=== PATIENT | female | born 1995 | race Caucasian/White ===

== ENCOUNTER 2018-04-19 05:14 | Day surgery (SDC) | payer BC ==
[~2018-04-19] VITALS: Ht 170.2 cm; Wt 59.9 kg
[2018-04-19] MEDS ORDERED: MORPHINE SULFATE 4 MG/ML, 1ML IVPush PRN ×2 (06:00→11:30)
[2018-04-19] MEDS ORDERED: SODIUM CHLORIDE FLUSH 10ML SYR IVF ONE (06:00)
[2018-04-19] MEDS ORDERED: ONDANSETRON 2MG/ML, 2ML IVPush ONE (06:00)
[2018-04-19] MEDS ORDERED: ONDANSETRON 2MG/ML, 2ML ONE ×2 (06:06→10:46)
[2018-04-19] MEDS ORDERED: MORPHINE SULFATE 4 MG/ML, 1ML ONE (06:06)
[2018-04-19 06:19] LABS: BASOPHILS # (AUTO) 0.03 x10^3/uL (0-0.1); BASOPHILS % (AUTO) 0 % (0-1); EOSINOPHILS # (AUTO) 0.07 x10^3/uL (0-0.4); EOSINOPHILS % (AUTO) 1 % (1-7); LYMPHOCYTES # (AUTO) 1.88 x10^3/uL (1-3.4); LYMPHOCYTES % (AUTO) 25 % (22-44); MD NO; MEAN CORPUSCULAR HEMOGLOBIN 31.8 pg (27.0-34.8); MEAN CORPUSCULAR HGB CONC 34.1 g/dL (32.4-35.8); MEAN CORPUSCULAR VOLUME 93.1 fL (80-100); MONOCYTES # (AUTO) 0.47 x10^3/uL (0.2-0.8); MONOCYTES % (AUTO) 6 % (2-9); NEUTROPHILS # (AUTO) 5.12 x10^3/uL (1.8-6.8); NEUTROPHILS % (AUTO) 68 % (42-75); PLATELET COUNT 167 x10^3/uL (130-400); RED BLOOD COUNT 4.18 x10^6/uL (3.82-5.3)
[2018-04-19 06:27] LABS: ALANINE AMINOTRANSFERASE 15 U/L (12-78); ALBUMIN 3.4 g/dL (3.4-5.0); ANION GAP 7 mmol/L (5-15); CALCIUM 8.3 mg/dL (8.5-10.1); CHLORIDE 110 mmol/L (98-107); CREATININE 0.79 mg/dL (0.55-1.02)
[2018-04-19 06:31] LABS: MICROSCOPIC INDICATED
[2018-04-19 06:40] LABS: CULTURE INDICATED? NO
[2018-04-19 06:45] LABS: ALKALINE PHOSPHATASE 67 U/L (45-117); BILIRUBIN,TOTAL 0.3 mg/dL (0.2-1.0); TOTAL PROTEIN 6.6 g/dL (6.4-8.2)
[2018-04-19 08:17] VITALS: BP 121/67
[2018-04-19] MEDS ORDERED: MISOPROSTOL 200 MCG TABLET ONE (09:44)
[2018-04-19] MEDS ORDERED: OXYTOCIN 10 UNITS/ML, 1ML ONE (09:44)
[2018-04-19] MEDS ORDERED: BUPIVACAINE/PF-EPI 0.25% 1:200K ONE (09:44)
[2018-04-19] MEDS ORDERED: SILVER NITRATE STICK TP ONE (09:56)
[2018-04-19] MEDS ORDERED: METHYLERGONOVINE 0.2 MG/ML IM ONE (09:57)
[2018-04-19] MEDS ORDERED: MIDAZOLAM 1 MG/ML, 2ML ONE (10:42)
[2018-04-19] MEDS ORDERED: FENTANYL PF 250 MCG/5ML ONE (10:42)
[2018-04-19] MEDS ORDERED: PROPOFOL 10 MG/ML, 20ML ONE (10:46)
[2018-04-19] MEDS ORDERED: CEFAZOLIN 1,000 MG ONE (10:46)
[2018-04-19] MEDS ORDERED: LIDOCAINE 4%, 4 ML SYR/CANN TP ONE (10:46)
[2018-04-19] MEDS ORDERED: ROCURONIUM 10 MG/ML,10ML ONE (10:46)
[2018-04-19] MEDS ORDERED: DEXAMETHASONE 4 MG/ML, 5ML ONE (10:46)
[2018-04-19] MEDS ORDERED: SUCCINYLCHOLINE 20 MG/ML, 10ML ONE (10:46)
[2018-04-19] MEDS ORDERED: ONDANSETRON 2MG/ML, 2ML IV PRN (11:30)
[2018-04-19] MEDS ORDERED: MEPERIDINE/PF 25MG/0.5ML IVPush PRN (11:30)
[2018-04-19] MEDS ORDERED: ONDANSETRON ODT 8 MG PO PRN (11:30)
[2018-04-19] MEDS ORDERED: PROMETHAZINE 25 MG/ML, 1ML IV PRN (11:30)
[2018-04-19] MEDS ORDERED: FENTANYL PF 100 MCG/2ML IV PRN (11:30)
[2018-04-19] MEDS ORDERED: OXYcodone 5 MG/5 ML ORAL.SOL UDC PO PRN (11:30)
[2018-04-19] MEDS ORDERED: ACETAMINOPHEN 325 MG TABLET PO PRN ×2 (11:30→13:00)
[2018-04-19] MEDS ORDERED: LORazepam 2 MG/ML, 1ML IVPush PRN (11:30)
[2018-04-19] MEDS ORDERED: FENTANYL PF 100 MCG/2ML ONE (11:59)
[2018-04-19] MEDS ORDERED: BUPIVACAINE/PF-EPI 0.25% 1:200K INFIL ONE (12:28)
[2018-04-19] MEDS ORDERED: D5%-LACTATED RINGERS 1,000 ML IV SCH (12:34)
[2018-04-19] MEDS ORDERED: MEPERIDINE/PF 50 MG/ML ONE (12:34)
[2018-04-19] MEDS ORDERED: OXYcodone/APAP 5/325MG TABLET PO PRN (13:00)
[2018-04-19] MEDS ORDERED: ONDANSETRON 2MG/ML, 2ML IVPush PRN (13:00)
[2018-04-19] MEDS ORDERED: ACETAMINOPHEN 650 MG/20.3 ML UDC ONE (13:00)
[2018-04-19] MEDS ORDERED: OXYcodone 5 MG/5 ML ORAL.SOL UDC ONE (13:00)
[2018-04-19 13:12] LABS: ANION GAP 7 mmol/L (5-15); CALCIUM 8.1 mg/dL (8.5-10.1); CHLORIDE 111 mmol/L (98-107); CREATININE 0.94 mg/dL (0.55-1.02)
[2018-04-19] MEDS ORDERED: PROMETHAZINE 25 MG/ML, 1ML ONE (13:30)
[2018-04-19] MEDS ORDERED: METHOTREXATE IM ONE (13:30)
[2018-04-19] MEDS ORDERED: IBUPROFEN 200 MG TABLET PO SCH (21:00)
== END 2018-04-19 17:14 | disposition home or self-care (01) ==
LOC: OR 09:10 → EDIP 09:11 → OR 09:11 → UNDOADMIN 09:11 → OR 09:21 → UNDODISIN 17:05 → OR 17:14
PROVIDERS: ATTEND Emergency Medicine
DX: O00.101 Right tubal pregnancy without intrauterine pregnancy (principal); N83.11 Corpus luteum cyst of right ovary; Z72.89 Other problems related to lifestyle
CPT/HCPCS: 36415; 59151; 76856; 80053; 81001; 83690; 84702; 84703; 85025; 86850; 86900; 88305; 96374; 96375; 99291; J0330; J0690; J1100; J2175; J2250; J2405; J2704; J3010; J9250; 80048; J2210; J2590

== ENCOUNTER 2018-11-26 23:51 | Emergency (ER) | payer BC ==
[~2018-11-26] VITALS: Ht 165.1 cm; Wt 60.5 kg
--- NOTE | 2018-11-27 01:02 | NUR ---
BREAK RN: URINE SENT TO LAB. C/O LOWER ABDOMINAL PAIN STARTED AROUND 9:30 PM. DESCRIBED SHARP / CRAMPING PAIN. DENIES N/V. PAIN NON RADIATING.
--- NOTE | 2018-11-27 01:07 | NUR ---
STEWARD/STEWARDESS CHIEF CARGO VESSEL AT BEDSIDE FOR BLOOD DRAW.
[2018-11-27 01:13] LABS: HCG UR SG 1.015 (1.003-1.030); MICROSCOPIC NOT IND
[2018-11-27 01:15] LABS: CULTURE INDICATED? NO
[2018-11-27 01:18] LABS: BASOPHILS # (AUTO) 0.05 x10^3/uL (0-0.1); BASOPHILS % (AUTO) 0 % (0-1); EOSINOPHILS # (AUTO) 0.08 x10^3/uL (0-0.4); EOSINOPHILS % (AUTO) 1 % (1-7); LYMPHOCYTES # (AUTO) 2.15 x10^3/uL (1-3.4); LYMPHOCYTES % (AUTO) 19 % (22-44); MD NO; MEAN CORPUSCULAR HEMOGLOBIN 31.3 pg (27.0-34.8); MEAN CORPUSCULAR VOLUME 91.9 fL (80-100); MONOCYTES # (AUTO) 0.46 x10^3/uL (0.2-0.8); MONOCYTES % (AUTO) 4 % (2-9); NEUTROPHILS # (AUTO) 8.83 x10^3/uL (1.8-6.8); NEUTROPHILS % (AUTO) 76 % (42-75); PLATELET COUNT 171 x10^3/uL (130-400); RED BLOOD COUNT 4.19 x10^6/uL (3.82-5.3); RED CELL DISTRIBUTION WIDTH 13.9 % (9.6-15.2)
[2018-11-27 01:28] LABS: ALANINE AMINOTRANSFERASE 15 U/L (12-78); ALBUMIN 3.7 g/dL (3.4-5.0); ANION GAP 6 mmol/L (5-15); CALCIUM 8.3 mg/dL (8.5-10.1); CHLORIDE 114 mmol/L (98-107)
[2018-11-27 01:31] LABS: ALKALINE PHOSPHATASE 74 U/L (45-117); BILIRUBIN,TOTAL 0.3 mg/dL (0.2-1.0); CREATININE 0.61 mg/dL (0.55-1.02); TOTAL PROTEIN 6.9 g/dL (6.4-8.2)
[2018-11-27 02:00] VITALS: BP 118/74
--- NOTE | 2018-11-27 02:11 | NUR ---
Patient given discharge instructions and they have confirmed that they understand the instructions. Patient ambulatory with steady gait.
== END 2018-11-27 02:17 | disposition home or self-care (01) ==
LOC: ED 11-27 01:08
DX: R10.32 Left lower quadrant pain (principal); R10.30 Lower abdominal pain, unspecified
CPT/HCPCS: 36415; 80053; 81003; 81025; 83690; 85025; 99283